=== PATIENT | male | born 1970 | race Caucasian/White ===

== ENCOUNTER 2019-11-25 07:32 | Outpatient (CLI) | payer OTHER, SELFPAY ==
--- NOTE | ~2019-11-25 | US_ITS ---
US right upper quadrant INDICATION: Elevated liver function tests PROCEDURE: Realtime right upper abdominal ultrasound. COMPARISON: Ultrasound dated 04/05/2018 FINDINGS: The pancreas is normal without focal mass or pancreatic ductal dilation. Liver echotexture is increased, consistent with fatty infiltration. There is normal directional flow in the portal ve in. The gallbladder is normal without stones, gallbladder wall thickening or pericholecystic fluid. Comm on bile duct measures 3 mm. No sonographic Vines's sign. There are right renal cysts, largest measu ring 4.3 cm. IMPRESSION: 1: Hepatic steatosis. Reviewed, dictated and finalized at location A. IMPRESSION: 1: Hepatic steatosis.
== END 2019-11-25 07:33 | disposition home or self-care (01) ==
PROVIDERS: PCP Internal Medicine; Visit Provider Nurse Practitioner
DX: R74.0 Nonspecific elevation of levels of transaminase and lactic acid dehydrogenase [LDH] (principal); K76.0 Fatty (change of) liver, not elsewhere classified
CPT/HCPCS: 76705

== ENCOUNTER 2022-12-28 01:43 | Emergency (ER) | payer OTHER, SELFPAY ==
--- NOTE | ~2022-12-28 | CT_ITS ---
CT of the Abdomen and Pelvis: Indication: Abdominal pain Technique: 2.5 mm axial scans were obtained through the abdomen and pelvis following intravenous adm inistration of 100 cc of Omnipaque 350. Dose reduction technique was used on this scan by utilizing a utomated exposure control and iterative reconstruction technique. The dose-length product (DLP) was 9 18.87 mGy-cm. COMPARISON: 11/16/2011 Findings: Scans through the lung bases demonstrate small hiatal hernia. The liver, spleen, pancreas, gallbladder, adrenals and kidneys are within normal limits. There are at herosclerotic calcifications of the aorta. No lymphadenopathy. No bowel obstruction or bowel wall thickening. There is no evidence to suggest acute appendicitis. Images through the pelvis were performed. Small right-sided posterior urinary bladder diverticulum no jeff. Prostate gland and seminal vesicles are unremarkable. No ascites. Impression: Small hiatal hernia. Small right-sided posterior urinary bladder diverticulum. Reviewed, dictated and finalized at location . Impression: Small hiatal hernia. Small right-sided posterior urinary bladder diverticulum.
[2022-12-28 01:52] VITALS: BP 151/94; PULSE 84; RESP 20; TEMP 36.9; O2SAT 100
--- NOTE | 2022-12-28 02:03 | ED.ABDPAIN ---
HPI - Abdominal Pain General Chief Complaint: Abdominal Pain <SHONA Sanchez Last Filed: 12/28/22 04:24> Stated Complaint: abd pain <SHONA Sanchez Last Filed: 12/28/22 04:24> Time Seen by Provider: 12/28/22 01:58 <SHONA Sanchez Last Filed: 12/28/22 04:24> History of Present Illness HPI narrative: 52-year-old male with a history of cirrhosis and hypertension reports for evaluation of right lower quadrant and right upper quadrant abdominal pain since 7 PM. States the pain started suddenly and is worse with certain movements, radiates to the right flank. Reports 1 episode of diarrhea prior to arrival. Denies nausea or vomiting, melena or hematochezia, hemoptysis, fever, urinary complaints. He denies history of abdominal surgeries. <SHONA Sanchez Last Filed: 12/28/22 04:24> Related Data Home Medications: Home Medications Medication Instructions Recorded Confirmed fluticasone propionate 50 1 - 2 spray intranasal BID PRN 06/05/19 10/30/22 mcg/actuation nasal spray,suspension (Flonase Allergy Relief) <SHONA Sanchez Last Filed: 12/28/22 04:24> Allergies/Adverse Reactions: Allergies Allergy/AdvReac Type Severity Reaction Status Date / Time ibuprofen Allergy Unknown vomiting Verified 10/30/22 10:37 <SHONA Sanchez Last Filed: 12/28/22 04:24> Review of Systems Review of Systems: CONSTITUTIONAL: Denies fever, chills EYES: Denies visual changes, redness, or discharge. ENT: Denies rhinorrhea, congestion, sore throat, or otalgia. CARDIOVASCULAR: Denies chest pain, palpitations, or edema. RESPIRATORY: Denies cough or dyspnea. GASTROINTESTINAL: See HPI GENITOURINARY: Denies dysuria or hematuria. SKIN: Denies rash or itching. MUSCULOSKELETAL: Denies back pain, joint pain, or myalgia. NEUROLOGIC: Denies headache, numbness, dizziness, or weakness. PSYCHIATRIC: Denies anxiety or depression. <SHONA Sanchez Last Filed: 12/28/22 04:24> [facility] Past Medical History Medical History: Medical History Allergies Anxiety Cirrhosis HLD (hyperlipidemia) HTN (hypertension) Hyperglycemia Insomnia Transaminitis <Felipa Hanson PA-C - Last Filed: 12/28/22 04:24> Surgical History Surgical History: Surgical History H/O esophagogastroduodenoscopy History of eye surgery History of liver biopsy <Felipa Hanson PA-C - Last Filed: 12/28/22 04:24> Family History Family History: Family History Mother Patient's mother is in good health Sibling Patient's brother is in good health Father Family history of elevated blood lipids Other Hypertension <Felipa Hanson PA-C - Last Filed: 12/28/22 04:24> Social History Social History: Social History Smoking packs per day: 0.25 Smoking cigarettes per day: 5.0 Years smoked: 25 Smoking pack-years: 6.25 Smoking status: Former smoker Smoking end date: 06/25/08 Additional smoking assessment comments: 25 years smoking Alcohol intake: former Alcohol use details: occasional Substance use type: does not use Lack of Transportation: No Lack of Food: Never True Current Housing: I Have Housing Concerned About Future Housing: No Difficulty Paying Gas/Electric Bills: No Difficulty Paying for Meds: No Currently Unemployed: No Education: Bachelor's Degree Difficulty w/ Childcare or Family Care: No <Felipa Hanson PA-C - Last Filed: 12/28/22 04:24> Exam Narrative: GENERAL: Well-appearing, in no acute distress. HEAD: Normocephalic EYES: PERRLA ENT: Nares clear. Mucous membranes moist. Oropharynx without tonsillar hypertrophy exudate or other lesions. NECK: Supple.
[2022-12-28 02:08] VITALS: BP 169/95; PULSE 78; RESP 12; TEMP 36.6; O2SAT 96
[2022-12-28] MEDS: MORPHINE SULFATE (*CRX) 4 MG/ML INJ IV PUSH (02:19)
[2022-12-28] MEDS: SODIUM CHLORIDE 0.9% IV 1,000 ML 999 ML IV CONT (02:19)
[2022-12-28 02:27] VITALS: BP 164/93; PULSE 76; RESP 15; O2SAT 98
[2022-12-28 02:37] LABS: Basophils Percent Auto 0.6 % (0.2-1.2); Eosinophils Absolute Auto 0.1 K/mm3 (0-0.3); Eosinophils Percent Auto 1.4 % (0-4.4); Hematocrit 32.2 % (42.0-52.0); Hemoglobin 9.8 g/dL (14.0-18.0); Immature Granulocyte Absolute 0.02 K/mm3 (0.00-0.031); Immature Granulocyte Percent A 0.3 % (0-0.5); Lymphocytes Absolute Auto 1.43 K/mm3 (0.9-3.2); Lymphocytes Percent Auto 22.9 % (18.3-44.2); Mean Corpuscular HGB Conc 30.4 g/dl (32-36); Mean Corpuscular Volume 72.2 fl (80-100); Mean Platelet Volume 10.6 fl (7.4-10.4); Monocytes Absolute Auto 0.6 K/mm3 (0.1-0.6); Monocytes Percent Auto 9.6 % (2.6-8.5); Neutrophils Absolute Auto 4.1 K/mm3 (1.3-6.7); Neutrophils Percent Auto 65.2 % (45.5-73.1); Platelet Count Result 226 k/mm3 (150-375); Red Blood Count 4.46 M/mm3 (4.6-6.20); Red Cell Distribution Width 16.3 % (11.5-14.5); White Blood Count 6.3 K/mm3 (4.5-10.0)
[2022-12-28 02:50] LABS: Alanine Aminotransferase 17 U/L (6-50); Albumin Level 4.1 g/dL (3.5-5.1); Alkaline Phosphatase 61 U/L (38-126); Anion Gap 8 mmol/L (8-16); Aspartate Amino Transferase 21 U/L (17-59); Bilirubin,Total 0.4 mg/dL (0.2-1.3); Blood Urea Nitrogen 15 mg/dL (9-20); Calcium 8.7 mg/dL (8.4-10.2); Carbon Dioxide 26 mmol/L (22-30); Chloride 104 mmol/L (98-107); Estimated CRCL calculation 111 ml/min; Estimated Glomerular Filt Rate > 60; Glucose 112 mg/dL (65-110); Lipase 339 U/L (23-300); Potassium 3.6 mmol/L (3.4-5.0); Sodium 138 mmol/L (137-145)
[2022-12-28] MEDS: HYDROmorphone HCL INJ (*CRX) 1 MG/ML SYR IV PUSH (03:22)
[2022-12-28 03:32] LABS: Appearance Urine Clear (Clear); Bilirubin Urine Negative (Negative); Blood Urine Negative (Negative); Color Urine Yellow (Yellow); Glucose Urine UA Negative (Negative); Ketones Urine Negative (Negative); Leukocyte Esterase Ur Negative LEU/UL (Negative); Nitrate Urine Negative (Negative); Protein Urine Negative (Negative); Urobilinogen Urine 0.2 mg/dL (<2.0)
[2022-12-28 03:37] LABS: Add Urine Microscopic? NO; Specific Grav Ur 1.054 (1.001-1.035)
[2022-12-28 04:26] VITALS: BP 134/94; PULSE 75; RESP 11; O2SAT 100
[2022-12-28 05:01] VITALS: BP 147/95; PULSE 68; RESP 12; TEMP 36.8; O2SAT 99
== END 2022-12-28 05:11 | disposition home or self-care (01) ==
PROVIDERS: Emergency Provider Emergency Medicine; PCP Internal Medicine
DX: R10.31 Right lower quadrant pain (principal); R10.11 Right upper quadrant pain; K74.60 Unspecified cirrhosis of liver; I10 Essential (primary) hypertension; E78.5 Hyperlipidemia, unspecified; Z87.891 Personal history of nicotine dependence
CPT/HCPCS: 36415; 74177; 80053; 81003; 83690; 85025; 96361; 96374; 96375; 99284; J1170; J2270; J7030; Q9967

== ENCOUNTER 2023-06-11 13:25 | Emergency (ER) | payer OTHER, SELFPAY ==
--- NOTE | ~2023-06-11 | XR_ITS ---
EXAMINATION: XR chest 2V DATE: 06/11/2023 14:09 INDICATION: Shortness of breath and cough TECHNIQUE: PA and lateral views of the chest are obtained. COMPARISON: 06/30/2008 FINDINGS: The lungs are free of acute opacities. No pleural effusion or pneumothorax. The cardiomedia stinal silhouette is normal. There is moderate thoracic spondylosis. Changes of anterior fusion are n oted in the lower cervical spine. IMPRESSION: 1. No acute cardiopulmonary abnormality. Reviewed, dictated and finalized at location B. [employer]
[2023-06-11 13:36] VITALS: BP 153/81; PULSE 94; RESP 16; TEMP 36.6; O2SAT 99
--- NOTE | 2023-06-11 13:59 | ED.URI ---
HPI - URI/Sore Throat General Chief Complaint: Upper Respiratory Infection Stated Complaint: Shortness of breath Time Seen by Provider: 06/11/23 13:50 Source: patient, RN notes reviewed and old records reviewed Mode of arrival: ambulatory Limitations: no limitations History of Present Illness HPI Narrative: 53-year-old male who presents to [facility] with complaints of sinus congestion, chest congestion with cough and some shortness of breath with exertion for the past 5 days Patient reports that he does have some sinus pressure,denies any known fevers, Patient does have a loose sounding cough with cough productive of occasional hatch mucous. Patient reports that he has been using his inhaler and has been taking Theraflu for his symptoms. Patient reports that inhaler doesn't seem to be helping his shortness of breath much. Patient reports that he has had some walking pneumonia in the past and is concerned for pneumonia. MD elicited complaint: cough, rhinorrhea, nasal congestion, sinus pain (pressure ) and other (shortnes of breath reported) Pertinent past history: pneumonia (walking reported) Onset (ago): day(s) (5) Consistency: constant Severity: moderate Pain scale (0-10): 2 Description of mucous: other (at times hatch) Able to tolerate fluids by mouth: Yes Exacerbating factors: exertion Associated symptoms: nasal congestion, cough, shortness of breath and other (sinus pressure) Treatments prior to arrival: other (inhaler and Theraflu) Related Data Home Medications Medication Instructions Recorded Confirmed fluticasone propionate 50 1 - 2 spray intranasal BID PRN 06/05/19 06/11/23 mcg/actuation nasal Shortness Of Breath spray,suspension (Flonase Allergy Relief) Allergies Allergy/AdvReac Type Severity Reaction Status Date / Time ibuprofen Allergy Unknown vomiting Verified 06/11/23 13:40 Review of Systems Review of Systems: CONSTITUTIONAL: Denies malaise, chills, sweats, or fever. EYES: Denies visual changes, redness, or discharge. ENT: Reports rhinorrhea, congestion, sinus pain,no otalgia and no sore throat. CARDIOVASCULAR: Denies chest pain, palpitations, or edema. RESPIRATORY: Reports cough.?Reports he feels short of breath with exertion GASTROINTESTINAL: Denies abdominal pain, nausea, vomiting, diarrhea SKIN: Denies rash or itching. MUSCULOSKELETAL: Denies myalgia. NEUROLOGIC: Denies headache. All systems reviewed & are unremarkable except as noted in HPI and below PMFSH Past Medical History Medical History Allergies Anxiety Cirrhosis HLD (hyperlipidemia) HTN (hypertension) Hyperglycemia Insomnia Transaminitis Surgical History Surgical History H/O esophagogastroduodenoscopy History of eye surgery History of liver biopsy Family History Family History Mother Patient's mother is in good health Sibling Patient's brother is in good health Father Family history of elevated blood lipids Other Hypertension Social History Social History Smoking packs per day: 0.25 Smoking cigarettes per day: 5.0 Years smoked: 25 Smoking pack-years: 6.25 Smoking status: Former smoker Smoking end date: 06/25/08 Additional smoking assessment comments: 25 years smoking Alcohol intake: former Alcohol use details: occasional Substance use type: does not use Lack of Transportation: No Lack of Food: Never True Current Housing: I Have Housing Concerned About Future Housing: No Difficulty Paying Gas/Electric Bills: No Difficulty Paying for Meds: No Currently Unemployed: No Education: Bachelor's Degree Difficulty w/ Childcare or Family Care: No Comments At time of signature, agree with nursing past medical, surgical, social and family histo
== END 2023-06-11 14:29 | disposition home or self-care (01) ==
PROVIDERS: Emergency Provider Registered Nurse; PCP Internal Medicine
DX: J06.9 Acute upper respiratory infection, unspecified (principal); E78.5 Hyperlipidemia, unspecified; I10 Essential (primary) hypertension; Z87.891 Personal history of nicotine dependence
CPT/HCPCS: 71046; 99213; G0463

== ENCOUNTER 2024-02-13 08:57 | Outpatient (CLI) | payer OTHER, SELFPAY ==
[2024-02-13 13:12] LABS: Basophils Percent Auto 0.8 % (0.2-1.2); Eosinophils Absolute Auto 0.2 K/mm3 (0-0.3); Hematocrit 37.5 % (42.0-52.0); Hemoglobin 11.3 g/dL (14.0-18.0); Immature Granulocyte Absolute 0.02 K/mm3 (0.00-0.031); Immature Granulocyte Percent A 0.4 % (0-0.5); Immature Reticulocyte Fraction 20.8 % (3.0-15.9); Lymphocytes Percent Auto 29.6 % (18.3-44.2); Mean Corpuscular HGB Conc 30.1 g/dl (32-36); Mean Corpuscular Hemoglobin 24.8 pg (26-34); Mean Corpuscular Volume 82.4 fl (80-100); Mean Platelet Volume 10.9 fl (7.4-10.4); Monocytes Absolute Auto 0.5 K/mm3 (0.1-0.6); Monocytes Percent Auto 9.1 % (2.6-8.5); Neutrophils Absolute Auto 2.9 K/mm3 (1.3-6.7); Neutrophils Percent Auto 57.1 % (45.5-73.1); Platelet Count Result 265 k/mm3 (150-375); Red Blood Count 4.55 M/mm3 (4.6-6.20); Red Cell Distribution Width 14.3 % (11.5-14.5); Reticulocyte Hemoglobin Conten 25.9 pg (28.2-36.6); Reticulocyte Percent 1.45 % (0.7-4.3); Reticulocytes Absolute 0.07 10^6/uL (0.02-0.10); White Blood Count 5.1 K/mm3 (4.5-10.0)
[2024-02-13 13:43] LABS: Iron 50 ug/dL (49-181)
[2024-02-13 13:45] LABS: LDL Cholesterol Direct 160 mg/dL
[2024-02-13 13:53] LABS: Alanine Aminotransferase 23 U/L (6-50); Albumin Level 4.4 g/dL (3.5-5.1); Alkaline Phosphatase 56 U/L (38-126); Anion Gap 13 mmol/L (4-12); Aspartate Amino Transferase 37 U/L (17-59); Bilirubin,Total 0.4 mg/dL (0.2-1.3); Blood Urea Nitrogen 15 mg/dL (9-20); Calcium 9.4 mg/dL (8.4-10.2); Carbon Dioxide 22 mmol/L (22-30); Chloride 104 mmol/L (98-107); Cholesterol 247 mg/dL (0-200); Estimated Glomerular Filt Rate 46; Glucose 92 mg/dL (65-110); HDL Direct 47 mg/dL; Potassium 4.3 mmol/L (3.4-5.0); Sodium 139 mmol/L (137-145); Triglycerides 93 mg/dL (<150)
[2024-02-13 14:03] LABS: Percent Iron Saturation 11 % (20-50)
[2024-02-13 14:04] LABS: Prostate Specific Antigen 0.9 ng/mL (< OR = 4.0)
[2024-02-13 14:21] LABS: Ferritin 7.19 ng/mL (11.1-264)
[2024-02-13 14:40] LABS: Folic Acid > 20.0 ng/mL (2.76->20); Vitamin B12 > 1000.0 pg/mL (239-931)
== END 2024-02-13 08:58 | disposition home or self-care (01) ==
LOC: ANHGOSHLAB 08:59
PROVIDERS: PCP Internal Medicine; Visit Provider Nurse Practitioner
DX: D64.9 Anemia, unspecified (principal); R42 Dizziness and giddiness; Z12.5 Encounter for screening for malignant neoplasm of prostate; Z13.220 Encounter for screening for lipoid disorders
CPT/HCPCS: 36415; 80053; 80061; 82607; 82728; 82746; 83540; 83550; 84153; 84443; 85025; 85046; G0103

== ENCOUNTER 2024-02-13 09:10 | Outpatient (CLI) | payer OTHER, SELFPAY ==
--- NOTE | ~2024-02-13 | XR_ITS ---
EXAMINATION: XR chest 2V 02/13/2024 09:24 INDICATION: Shortness of breath PROCEDURE: 2 view chest COMPARISON: 06/11/2023 FINDINGS: The lungs are clear. The cardiomediastinal silhouette is within normal limits. There are no pleural effusions. There is no pneumothorax suspected. IMPRESSION: 1: NO ACUTE CARDIOPULMONARY DISEASE. Reviewed, dictated and finalized at location B.
== END 2024-02-13 09:11 ==
PROVIDERS: PCP Internal Medicine; Visit Provider Nurse Practitioner
DX: R06.02 Shortness of breath (principal)
CPT/HCPCS: 71046

== ENCOUNTER 2024-02-18 08:06 | Outpatient (CLI) | payer OTHER, SELFPAY ==
[2024-02-18 15:02] LABS: Anion Gap 11 mmol/L (4-12); Blood Urea Nitrogen 16 mg/dL (9-20); CRP < 0.5 mg/dL (<1.0); Calcium 9.1 mg/dL (8.4-10.2); Carbon Dioxide 25 mmol/L (22-30); Chloride 104 mmol/L (98-107); Estimated Glomerular Filt Rate 58; Glucose 102 mg/dL (65-110); Potassium 4.2 mmol/L (3.4-5.0); Sodium 140 mmol/L (137-145)
[2024-02-18 16:37] LABS: Hepatitis C Virus Antibody Negative (Negative)
[2024-02-19 14:03] LABS: ANA Cascade Screen NEGATIVE (NEGATIVE)
[2024-02-20 08:53] LABS: Protein, Total 6.8 g/dL (6.1-8.1)
[2024-02-20 10:33] LABS: Albumin 4.1 g/dL (3.8-4.8); Alpha 1 Globulin 0.3 g/dL (0.2-0.3); Alpha 2 Globulin 0.6 g/dL (0.5-0.9); Beta 1 Globulin 0.5 g/dL (0.4-0.6); Gamma Globulin 0.9 g/dL (0.8-1.7)
== END 2024-02-18 08:07 | disposition home or self-care (01) ==
LOC: ANHGOSHLAB 08:07
PROVIDERS: PCP Internal Medicine; Visit Provider Nurse Practitioner
DX: D64.9 Anemia, unspecified (principal); R79.89 Other specified abnormal findings of blood chemistry; R42 Dizziness and giddiness
CPT/HCPCS: 36415; 80048; 84155; 84165; 86038; 86140; 86225; 86235; 86364; 86803

== ENCOUNTER 2024-02-19 08:21 | Outpatient (NON) | payer OTHER, SELFPAY ==
[2024-02-22 10:55] LABS: Creatinine, Random Urine 141 mg/dL (20-320); Total Prot/Creat ratio mg/mg 0.035 (0.025-0.148); Total Protein/Creatinine Ratio 35 mg/g creat (25-148)
== END 2024-02-19 08:22 | disposition home or self-care (01) ==
LOC: ANHGOSHLAB 08:22
PROVIDERS: PCP Internal Medicine; Visit Provider Nurse Practitioner
DX: R79.89 Other specified abnormal findings of blood chemistry (principal); D64.9 Anemia, unspecified; R42 Dizziness and giddiness
CPT/HCPCS: 82570; 84156; 84166

== ENCOUNTER 2024-04-15 09:09 | Outpatient (RCR) | payer OTHER, SELFPAY ==
[2024-04-15 09:35] VITALS: BMI 31.9
[2024-04-15 09:38] VITALS: BMI 31.9
== END 2024-07-01 11:21 | disposition home or self-care (01) ==
LOC: ANHDMC 09:09
PROVIDERS: PCP Internal Medicine; Visit Provider Nurse Practitioner
DX: E66.9 Obesity, unspecified (principal); K74.60 Unspecified cirrhosis of liver; Z71.3 Dietary counseling and surveillance
CPT/HCPCS: 97802

== ENCOUNTER 2024-06-06 08:33 | Emergency (ER) | payer OTHER, SELFPAY ==
[2024-06-06 08:48] VITALS: BP 160/90; RESP 18; TEMP 36.7; O2SAT 99
--- NOTE | 2024-06-06 08:54 | ED.URI ---
HPI - URI/Sore Throat General Chief Complaint: Upper Respiratory Infection Stated Complaint: Cough Source: patient Mode of arrival: ambulatory Limitations: no limitations History of Present Illness HPI Narrative: 54 y/o male presented for c/o cough, sore throat, body aches, nasal congestion and subjective fever. Reports sudden onset x3 days. Denies sob, wheezing, vomiting or lethargy. Related Data Home Medications ?Medication ?Instructions ?Recorded ?Confirmed ?Last Taken ?Type fluticasone propionate 50 1 - 2 spray intranasal BID 02/13/24 03/21/24 Unknown History mcg/actuation nasal Shortness Of Breath spray,suspension (Flonase Allergy Relief) Allergies Allergy/AdvReac Type Severity Reaction Status Date / Time ibuprofen Allergy Unknown vomiting Verified 03/21/24 07:54 Review of Systems Review of Systems: ROS per HPI All systems reviewed & are unremarkable except as noted in HPI and below PMFSH Past Medical History Medical History Cirrhosis Allergies Insomnia Anxiety Hyperglycemia HTN (hypertension) HLD (hyperlipidemia) Transaminitis Surgical History Surgical History H/O esophagogastroduodenoscopy History of liver biopsy History of eye surgery Family History Family History Mother Patient's mother is in good health Sibling Patient's brother is in good health Father Family history of elevated blood lipids Cerebrovascular accident Other Hypertension Social History Social History Smoking packs per day: 0.25 Smoking cigarettes per day: 5.0 Years smoked: 25 Smoking pack-years: 6.25 Smoking status: Former smoker Smoking end date: 06/25/08 Additional smoking assessment comments: 25 years smoking Alcohol intake: former Alcohol use details: occasional Substance use type: does not use Lack of Transportation: No Lack of Food: Never True Current Housing: I Have Housing Concerned About Future Housing: No Difficulty Paying Gas/Electric Bills: No Difficulty Paying for Meds: No Currently Unemployed: No Education: Bachelor's Degree Difficulty w/ Childcare or Family Care: No Spiritual care concerns: No Comments At time of signature, I have reviewed and agree with nursing past medical, surgical, social and family history unless otherwise noted. Please see nursing chart for further information. There is no relevant family history pertinent to the presenting complaint Exam Narrative: GENERAL: Well-appearing, in no acute distress. EYES: EOMI. No redness or drainage. Conjunctivae normal. ENT: Mucous membranes pink and moist. Mild rhinorrhea. TMs normal bilaterally. Throat normal. Uvula midline. NECK: Normal AROM. Supple. CHEST: No respiratory distress. Lungs clear to all wilson. HEART: Regular rate and rhythm. No murmur appreciated. ABDOMEN: Soft, nontender, nondistended, normal active bowel sounds. SKIN: Warm, dry, no rash. Capillary refill normal. Normal skin turgor. NEURO: Alert and oriented x3. Gait steady. PSYCH: Normal affect. Course Course Emergency Course: Patient is aware of diagnosis, understands and agrees to treatment plan. Anticipatory guidance given. Patient agrees to follow-up as directed and is aware of reasons to seek care at the emergency department. Portions of this record may have been created with voice recognition software Level of Care: Express Care Visit Vital Signs Vital signs: Vital Signs Temperature 98.1 F 06/06/24 08:48 Respiratory Rate 18 06/06/24 08:48 Blood Pressure 160/90 H 06/06/24 08:48 Pulse Oximetry 99 06/06/24 08:48 Oxygen Delivery Room Air 06/06/24 08:48 Temperature 98.1 F 06/06/24 08:48 Respiratory Rate 18 06/06/24 08:48 Blood Pressure 160/90 H 06/06/24 08:48 Pulse Oximetry 99 06/06/24 08:48 Oxygen Delivery Room Air 06/06/24 08:48 MDM - URI/Sore Throat MDM Narrative Medical decision making narrative: Discussed physical exam findings; neg strep covid and flu. Advised supportive measures and signs/symptoms to go to the ER. Pt is appropriate for outpt treatment and f/u. Differential Diagnosis Differential diagnosis: Likely upper respiratory infection, otitis media, sinusitis, viral infection, bronchitis, influenza and pharyngitis Lab Data Labs: Lab Results 06/06/24 Range/Units 09:10 POC Grp A Strep Screen Negative (Negative) Discharge Plan Discharge Clinical Impression: Upper respiratory infection Patient Disposition: Home, Self-Care Condition: Stable Instructions: Antibiotic Form, Upper Respiratory Infection (ED) Additional Instructions: Flu and COVID negative. Rapid strep swab was negative today You will be notified in a few days if the culture comes back positive for strep, and appropriate antibiotics will be called in at that time. if symptoms are due to a viral illness, it is not treated with antibiotics. Viral symptoms can be present for up to 10-14 days. Recommendations: Flonase spray and Zyrtec for sinus congestion Cough syrup may cause drowsiness; avoid driving or take it at night time. Tylenol every 8 hours as needed for pain/fever Soft foods, cool liquids, warm tea. Gargle with warm saltwater twice a day. Chloraseptic spray and throat lozenges. Rest and stay hydrated. --Follow up with your PCP --Go to the ER immediately if you cannot swallow your saliva, trouble breathing/wheezing, throat swelling, pain is persistent and severe Patient Language: Serbian Prescriptions: No Action fluticasone propionate [Flonase Allergy Relief] 50 mcg/actuation spray,suspension 1 - 2 spray NASAL BID albuterol sulfate 90 mcg/actuation HFA aerosol inhaler 1 puff inhalation Q4H PRN (Reason: shortness of breath or wheezing) Qty: 6.7 0RF Rx Instructions: LAST REFILL UNTIL SEEN Ozempic 0.25 mg or 0.5 mg (2 mg/3 mL) pen injector 0.25 mg subcut WEEKLY Qty: 3 0RF Rx Instructions: for 4 weeks Follow-up/Referrals: Loco Vora, [Primary Care Provider] - Stand Alone Forms: Work/School Release IP Time of Disposition: 09:29
[2024-06-06 09:12] LABS: EDSTREPNEGPOS1 Negative (Negative)
[2024-06-06 09:43] LABS: EDCOVIDSCREEN Negative (Negative); EDINFLUASCREEN Negative (Negative); EDINFLUBSCREEN Negative (Negative)
== END 2024-06-06 09:40 | disposition home or self-care (01) ==
PROVIDERS: Emergency Provider Nurse Practitioner Family; PCP Internal Medicine
DX: J06.9 Acute upper respiratory infection, unspecified (principal); Z20.822 Contact with and (suspected) exposure to COVID-19; Z87.891 Personal history of nicotine dependence; K74.60 Unspecified cirrhosis of liver; I10 Essential (primary) hypertension; E78.5 Hyperlipidemia, unspecified; R74.01 Elevation of levels of liver transaminase levels
CPT/HCPCS: 87081; 87426; 87804; 87880; 99213; G0463